=== PATIENT | female | born 2005 | race Caucasian/White ===

== ENCOUNTER → 2025-02-22 | Outpatient (CLI) | payer SELFPAY ==
--- OUTSIDE RECORDS SUMMARY | 2025-02-22 22:01 | XMS RPT_ITS | CCD ---
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 Fco Payan DO Primary Care Provider Dr. Fco Payan DO Referring Provider Mike [employer]ING [employer]ACHINE [employer] TENDER-[employer], Haseeb Attending Provider Medications Current Medications Medication Drug Class(es) Dates Sig (Normalized) Sig (Original) nitrofurantoin, macrocrystals 25 mg / nitrofurantoin, monohydrate 75 mg oral capsule (1 source) Nitrofuran Antibacterial Start: 02-22-2025 take 1 capsule by mouth every twelve hours at mealtime Nitrofurantoin Monohyd/M-Cryst (Macrobid) 100 mg capsule Active 100 mg PO Q12H 10 5 0 February 22, 2025 12:00am February 26, 2025 12:00am must administer with a meal/food Problems Problem Classification Problem Date Documented Da te Episodic/Chronic Unclassified (1 source) Patient condition finding 02-22-2025 Urinary tract infections (2 sources) Acute urinary tract infection; Translations: [Urinary tract infection, site not specified] 02-22-2025 Episodic Vital Signs Date Time Vital Sign Value Performing Clinician Faci lity 02-22-2025 10:00-0400 Body height 160.[address] Fco Payan DO Work Phone: [facility] 02-22-2025 10:00-0400 Body mass index (BMI) [Percentile] Per age and sex 47.5 % Dr. Fco Payan DO Work Phone: [facility] 02-22-2025 10:00-0400 Body mass index (BMI) [Ratio] 21.4 kg/m2 Dr. Fco Payan DO Work Phone: [facility] 02-22-2025 10:00-0400 Body temperature 98.1 [degF] Dr. Fco Payan DO Work Phone: [facility] 02-22-2025 10:00-0400 Body weight 54.[address] Fco Payan DO Work Phone: [facility] 02-22-2025 10:00-0400 Diastolic blood pressure 84 mm[Hg] Dr. Fco Payan DO Work Phone: [facility] 02-22-2025 10:00-0400 Heart rate 67 /min Dr. Fco Payan DO Work Phone: [facility] 02-22-2025 10:00-0400 Respiratory rate 14 /min Dr. Fco Payan DO Work Phone: [facility] 02-22-2025 10:00-0400 SaO2% (BldA) [Mass fraction] 99 % Dr. Fco Payan DO Work Phone: [facility] 02-22-2025 10:00-0400 Systolic blood pressure 120 mm[Hg] Dr. Fco Payan DO Work Phone: [facility] Encounters Encounter Date Encounter Type Care Provider Facility Start: 02-22-2025 End: 02-22-[address] Fco Payan DO Work Phone: [facility] Start: 02-22-2025 End: 02-22-2025 Patient encounter procedure Haseeb Mckeon [employer] Work Phone: Plan of Treatment Date Care Activity Detail Author [facility] Payers Date Payer Category Payer Policy ID Medicaid [id number] Unknown [id number] Social History Date Type Detail Facility Start: 02-22-2025 Tobacco smoking stat us DCIS Never smoked tobacco (finding) [facility] Start: 2005 Sex Assigned At Female [facility] Evaluation note Note Date & Type Note Facility Evaluation note Diagnosis Onset Date Resolution Acute UTI acute February 22, 2025 10:00am [facility] Work Phone: Reason for referral (narrative) Note Date & Type Note Facility Reason for referral (narrative) No reason for referral information available [facility] Work Phone: Chief Complaint and Reason for Visit Chief Complaint Admit Date CONCERN FOR UTI February 22, 2025 10:00am Reason for Visit Admit Date Acute UTI February 22, 2025 10:00am Additional Source Comments Care Teams (unrecognized sec tion and content) Team Status: Active Member Role/Relationship Status Dates Dr. Fco Payan DO Primary Care Provider Active Team Status: Inactive Member Role/Relationship Status Dates Dr. Fco Payan DO Primary Care Provider Active Start: February 22, 2025 End: February 22, 2025 Dr. Fco Payan DO Referring Provider Active S tart: February 22, 2025 End: February 22, 2025 TUNG Watson Attending Provider Active Star t: February 22, 2025 End: February 22, 2025 Goals (unrecognized section and content) Goals may be documented in a n alternate section FOR RECORDS PERTAINING TO PATIENTS WHO ARE OR HAVE BEEN ENROLLED IN A CHEMICAL DEPENDENCY/SUBSTANCEABUSE PROGRAM, SOME INFORMATION MAY BE OMITTED. This clinical summary was aggregated from multiple sources. Caution should be exercised in using it in the provision of clinical care. This summary normalizes information from multiple sources, and as a consequence, information in this document may materially change the coding, format and clinical context of patient data. In addition, data may be omitted in some cases. CLINICAL DECISIONS SHOULD BE BASED ON THE PRIMARY CLINICAL RECORDS. [facility]. provides no warranty or guarantee of the accuracy or completeness of information in this document.
== END | disposition home or self-care (01) ==
LOC: LABSPEC 11:18
PROVIDERS: PCP Pediatrics; Visit Provider Nurse Practitioner
DX: R82.90 Unspecified abnormal findings in urine (principal)
CPT/HCPCS: 87086; 87088

== ENCOUNTER 2025-02-23 22:53 | Emergency (ER) | payer SELFPAY ==
[2025-02-23 22:54] VITALS: BP 119/86; PULSE 66; RESP 18; TEMP 36.8; O2SAT 96; BMI 21.0
[2025-02-23 23:35] LABS: Mucous, Urine 0 SEEN /hpf (<or=2+); Red Blood Cells-Urine 0 SEEN /hpf (0-5)
[2025-02-23 23:42] LABS: Color, Urine Amber (Yellow); Glucose, Dipstick Normal (Normal); Ketone-Dipstick Negative (Negative); Leukocyte Esterase-Dipstick Negative /ul (Negative); Nitrite-Dipstick Positive (Negative); Occult Blood-Urine 50 /ul (Negative); Protein-Dipstick 30 mg/dl (Negative); Specific Gravity, Urine 1.015 (1.002-1.030)
[2025-02-23 23:44] LABS: Urine Bilirubin Dipstick 6 mg/dL (Negative)
--- NOTE | 2025-02-23 23:51 | EDS_ITS ---
HPI History of Present Illness Chief Complaint: Complaint Informant: patient Narrative Narrative: Patient is a 19-year-old female who is otherwise healthy with no reported significant past medical history. She states that she began with lower abdominal pain and urinary frequency urgency and dysuria on Thursday. She states that she went to the urgent care and was placed on Macrobid. She states she has been taking that for the past 2 days but her symptoms have been persistent. She states she is also had bouts of nausea and vomiting associated with this. She denies any fevers or chills. She states that there is no concern for . She reports there is no vaginal discharge or lesions or concern for STDs. However with persistent symptoms she comes in for evaluation [facility] Medical History (Updated 02/24/25 @ 01:[address] Mariusz Theodore DO) Acute UTI No active medical problems Home Medications ?Medication ?Instructions ?Recorded ?Last Taken ?Type nitrofurantoin 100 mg PO Q12H 5 days #10 ca ps 02/22/25 Unknown Rx monohydrate/macrocrystals 100 mg capsule (Macrobid) cephalexin 500 mg capsule 500 mg PO TID 5 days #15 cap s 02/24/25 Unknown Rx ondansetron 4 mg disintegrating 4 mg PO TID PRN nausea and 02/24/25 Unknown Rx tablet vomiting #21 tabs phenazopyridine 200 mg tablet 200 mg PO TID PRN pain 3 days #9 02/24/25 Unknown Rx (Pyridium) tabs Allergy/AdvReac Type Severity Reaction Status Date / Time No Known Allergies Allergy Verified 02/23/25 22:56 Surgical History No pertinent past surgical history Social History (Updated 02/22/25 @ 10:00 by Annamarie Kumar) Smoking Status: Never smoker alcohol intake: never substance use type: does not use ROS ROS ED Constitutional Constitutional ED: Denies chills or fever(s) ENT ENT ED: Denies sore throat Cardiovascular Cardiovascular: Denies chest pain Respiratory/Chest Respiratory/Chest: Denies cough or dyspnea Gastrointestinal Gastrointestinal: Reports abdominal pain, nausea and vomiting; Denies diarrhea Genitourinary Genitourinary ED: Reports dysuria, hematuria and urinary frequency Musculoskeletal Musculoskeletal: Reports back pain Integumentary Denies rash Neurologic Neurologic: Denies headache(s) Hematologic/Lymphatic Hematologic/Lymphatic: Denies easy bleeding or easy bruising EXAM Physical Exam Const Vital Signs: 02/23/25 22:54 02/23/25 23:56 02/24/25 00:59 Temperature 98.2 F 98.0 F 98.4 F Temperature Source Oral Oral Pulse Rate 66 56 L 68 Respiratory Rate 18 16 16 Blood Pressure 119/86 H 114/76 114/60 Blood Pressure Mean 97 88 78 Pulse Ox 96 96 99 Oxygen Delivery Method Room Air Room Air Positive well nourished and well developed General Appearance ED: well developed; Negative for pallor HEENT HEENT Narrative: Normocephalic atraumatic No tongue or lip swelling no oral lesions no airway edema or compromise; no secondary findings in the posterior pharynx Mucous membranes are slightly dry and tacky Eyes PERRL and EOMs intact bilaterally General Eye ED: Negative for scleral icterus Neck supple Resp normal respiratory effort and clear to auscultation bilaterally Cardio regular rate and regular rhythm GI non-distended and no masses GI Narrative: Abdomen is soft and nondistended with normal active bowel sounds. Patient has pain with palpation across the lower abdomen diffusely but greatest in the suprapubic region. No voluntary guarding or rigidity or pulsatile mass Auscultation: normoactive bowel sounds Palpation: soft Back/Spine no CVA tenderness Extremity normal to inspection Neuro oriented x3, CN's II-XII intact bilaterally and no sensory deficits noted Sensorium / Orientation: alert Motor Exam: strength 5/5 throughout Psych mental status grossly normal Skin no rashes or lesions noted and skin turgor normal General Skin Exam: Negative for jaundice or pallor MDM MDM MDM Narrative Medical decision making narrative: Patient arrived to the ER with stable vitals and a soft nonsurgical abdomen. She reported urinary frequency urgency and dysuria. Differential diagnosis is for UTI versus complication versus kidney stone versus pyelonephritis. As she reported being on Macrobid for 1 to 2 days already with persistent symptoms and having bouts of nausea and vomiting we did discuss basic laboratory studies to check for acute kidney injury electrolyte abnormality or signs of severe dehydration. Patient states that she does not want an IV or blood work done at this time. Therefore she was given oral Zofran and advised to hydrate orally. Patient's urine sample was nitrite positive with trace/rare bacteria. The culture from urgent care was reviewed and showed mixed gram-positive and gram-negative findings concerning for contamination. At this time the urine is weakly positive for UTI but based on her symptoms of urgency frequency and dysuria I do feel that the patient warrants further antibiotic treatment while the urine is sent for repeat culture. As she has been having potential side effects from the Macrobid such as nausea and vomiting this will be stopped and she will be changed to Keflex. However as her vitals are stable and there is no CVA pain and concern for pyelonephritis or systemic infection is low do not feel the need for further workup and she is otherwise safe for discharge. History & Record Review Discussion w/independent historian: Patient Lab Data Attestation: I reviewed the patient's lab results. Labs: Laboratory Results - last 24 hr 02/23/25 23:05 Urine Color Trisha Urine Clarity Clear Urine pH 6.0 Ur Specific [place] 1.015 Urine Protein 30 H Urine Glucose (UA) Normal Urine Ketones Negative Urine Occult Blood 50 H Urine Nitrite Positive H Urine Bilirubin 6 H Urine Urobilinogen 12 H Ur Leukocyte Esterase Negative Urine RBC 0 SEEN Urine WBC 0 SEEN Ur Squamous Epith Cells 0-5 SEEN Urine Bacteria RARE Urine Mucus 0 SEEN Urine Test Negative Discharge Plan Triage Chief Complaint: Complaint ED Provider: Mariusz Theodore Dx/Rx/DC Orders Clinical Impression: Acute UTI, Nausea and vomiting Instructions: ED UTIs Women Prescriptions: New ondansetron 4 mg tablet,disintegrating 4 mg PO TID PRN (Reason: nausea and vomiting) Qty: 21 0RF phenazopyridine [Pyridium] 200 mg tablet 200 mg PO TID PRN (Reason: pain) 3 Days Qty: 9 0RF cephalexin 500 mg capsule 500 mg PO TID 5 Days Qty: 15 0RF No Action nitrofurantoin monohyd/m-cryst [Macrobid] 100 mg capsule 100 mg PO Q12H 5 Days Qty: 10 0RF Rx Instructions: must administer with a meal/food Primary Care Provider: Care Physician,No Primary Referrals: Shemar Yeager MD [Med Staff - Active Staff] - NOT,DEFINED [Non-Staff] - Activity Restrictions/Additional Instructions: Please stop the nitrofurantoin/Macrobid as you are having persistent symptoms despite taking the antibiotic. Begin taking the cephalexin/Keflex as directed from the ER. Return for repeat evaluation if you have worsening of symptoms or any further concerns. Print Language: Romansh Disposition Disposition: Home, Self Care Discharge Date/Time: 02/24/25 00:59
[2025-02-23 23:53] LABS: Internal QC Validated? YES +Cl - CLEAR BKGD; Pregnancy, Urine Negative Negative; Record Kit Lot#,Urine Preg 0000947241; Squamous Epithelial Cells - UA 0-5 SEEN /hpf (5-10)
[2025-02-23 23:56] VITALS: BP 114/76; PULSE 56; RESP 16; TEMP 36.7; O2SAT 96
--- OUTSIDE RECORDS SUMMARY | 2025-02-24 00:46 | XMS RPT_ITS | CCD ---
Author Organization [facility] Care Team Providers Care Chemical Engraver Name Role Phone Dr. Fco Payan DO Primary Care Provider Dr. Fco Payan DO Referring Provider Mike OUTSOLE LEVELER-CHaseeb Attending Provider Haseeb Mckeon Attending Unavailable Fco Payan Referring Unavailable Fco Payan Primary Care Unavailable Haseeb Mckeon Attending Unavailable Fco Payan Primary Care Unavailable Provider, Ed Physician Attending Unavailab le NOT, DEFINED Primary Care Unavailable Medications Current Medications Medication Drug Class(es) Dates [...] Classification Problem Date Documented Da te Episodic/Chronic Genitourinary symptoms and ill-defined conditions (3 sources) Unspecified abnormal findings in urine; Translations: [Dysuria] Onset: 02-23-2025 Episodic Unclassified (1 source) Patient condition finding 02-22-2025 Urinary tract infections (3 sources) Acute urinary tract infection; Translations: [Urinary tract infection, site not specified] Onset: 02-23-2025 02-22-2025 Episodic Results Test Name Value Interpretation Reference Range Facil ity Urine Cultureon 02-23-2025 URC Mixed Gram Pos Gram Neg Org [place] Count <1000 MIXC Mixed contaminants. Submit a new specimen if indicated. Normal [facility] Comment on above: Performed By: #### M [id number] #### [facility] [address] [place], [address] Urgent Care Visit Reporton 0 02-22-2025 Urgent Care Visit Report [facility] [address], [address] [place] [address] OFFICE VISIT Date of Service: 02/22/25 MR#: [id number] Acct: [id number] Name: MONICA PONCE Rep #: [id number] : 2005 Provider: TUNG Mckeon Age/Sex: 19/F [place] [facility] [place] [place]: Signed Intake Vital Signs 02/22/25 10:00 Height 5 ft 3 in Weight: 121 lb 4 oz BMI 21.4 BP 120/84 H Blood Pressure Location Rt brachial Position Sitting Respiration 14 Pulse 67 Pulse Source NIBP Temp 98.1 F Temp Source Oral Pulse Oximetry (%) 99 Oxygen Delivery Method room air Intake Visit Reasons: CONCERN FOR UTI Chief Complaint: dysuria, blood, pubic pain Tax Representative Required: No Is patient in pain?: Yes Allergies No Known Allergies Allergy (Verified 02/22/25 10:18) Medications ???Medication ???Instructions ???Recorded ???Confirmed ???Type nitrofurantoin 100 mg PO Q12H 5 days #10 caps 09/1302/22/25 Rx monohydrate/macrocrys tals 100 mg capsule (Macrobid) Is last menstrual period known: No Post menopausal: No Patient : No Have you fallen in the past year?: No Nurse's Note: dysuria, blood, pubic pain x 2 days. denies back pain, unsure of fever. [facility] Medical History (Updated 02/22/25 @ 10:19 by TUNG Watson) Acute UTI No active medical problems Surgical History (Updated 02/22/25 @ 09:59 by Annamarie Kumar) No pertinent past surgical history Social History (Updated 02/22/25 @ 10:00 by Annamarie Kumar) Smoking Status: Never smoker alcohol intake: never substance use type: does not use HPI HPI Chief Complaint: dysuria, blood, pubic pain Details: MONICA PONCE, is a 19 F who presents to the office today for HPI: Patient presents today complaining about 1 day of urinary frequency and burning. She also notes lower abdominal and lower back pain. She notes nausea and vomiting but denies any fevers. Denies chance of . ROS: As noted in HPI Physical Exam: VITALS: Reviewed. GEN: Healthy appearing, well-developed, NAD. PSYCH: AOx3. Normal memory, mood, and affect. HEENT -Eyes: -No discharge or redness; -Ears: -Mouth and throat: Moist mucous membranes. NECK: CV: Regular rate and rhythm LUNGS: Normal respiratory effort. Lungs clear bilaterally. Abdomen: Soft nontender. No CVA tenderness. SKIN: Warm, well perfused. No skin rashes or abnormal lesions noted. MSK: Normal gait. NEURO: Ambulating with no limitations. Normal muscle strength and tone. No focal deficits. Results POC Urine Office , Urine Negative Last Edit by Ananmarie Kumar on 02/22/25 10:20 POC Urinalysis Dip (Clinic) Office Urine Color Trisha Last Edit by Annamarie Kumar on 02/22/25 10:21 Office Urine Clarity Turbid Last Edit by Annamarie Kumar on 02/22/25 10:21 Office Urine Glucose Negative Last Edit by Annamarie Kumar on 02/22/25 10:21 Office Urine Ketones Negative Last Edit by Annamarie Kumar on 02/22/25 10:21 Off Ur Spec [place] 1.025 Last Edit by Annamarie Kumar on 02/22/25 10:21 Office Urine pH 6.0 Last Edit by Annamarie Kumar on 02/22/25 10:21 Office Urine Bilirubin Negative Last Edit by Annamarie Kumar on 02/22/25 10:21 Office Urine Urobilinogen Negative Last Edit by Annamarie Kumar on 02/22/25 10:21 Office Urine Blood Negative Last Edit by Annamarie Kumar on 02/22/25 10:21 Office Urine Blood Hemolyzed Large Last Edit by Annamarie Kumar on 02/22/25 10:21 Office Urine Protein 2+ Last Edit by Annamarie Kumar on 02/22/25 10:21 Office Urine Nitrate Negative Last Edit by Annamarie Kumar on 02/22/25 10:21 Off Ur Leukocytes Positive Last Edit by Annamarie Kumar on 02/22/25 10:21 Coding Level of Care Code Off vis,new,level 3 Diagnoses Acute UTI N39.0 Assessment and Plan Assessment and Plan (1) Acute UTI: Status: Acute Plan: Urinalysis today was positive for leukocytes and blood. Negative test. Patient will be started on Macrobid and urine sent for culture. Orders: Orders POC Urinalysis Dip (Clinic) Today R30.0 - Dysuria POC Urine Today R30.0 - Dysuria Culture, Urine Today R82.90 - Unspecified abnormal findings in urine Medications: New nitrofurantoin monohyd/m-cryst 100 mg (Macrobid) must administer with a meal/food 100 mg PO Q12H 5 days 10 caps 0RF Clinical Quality Measures Falls Risk Screening/Assistive Devices Have you fallen in the past year?: No 02/22/25 1022 Date Haseeb Torresigner Signature: Date (if applicable) CC: Normal [facility] CNOVon 11-21-2020 CNOV Office Visit (PEDSWS ) MONICA PONCE ([id number]) 5 F Date Time Provider Department 11/21/20 3:30 PM LIVIA GUTIERREZ During your visit today, we recorded the following information about you: Temperature Pulse Respiration Blood pressure 97.4 degrees 68/minute 20/minute 94/64 Weight Height Last Period 52.2 kg 1.572 m 11/20/20 Livia Gutierrez MD 11/26/2020 10:00 AM Signed WELL VISIT PEDIATRIC FEMALE 14-17 YRS OLD SERVICE DATE: 11/21/2020 Monica is a 14 year old female who presents today for well exam accompanied by her father and sibling(s). HISTORY ACTIVE PROBLEM LIST Nocturnal Enuresis - 01/11/2014 PAST MEDICAL HISTORY Diagnosis Date - NEGATIVE MEDICAL HISTORY 12/10/2017 normal color vision - Nocturnal enuresis PAST SURGICAL HISTORY Procedure Laterality Date - NONE ALLERGIES No Known Allergies Medications: No prescriptions on file. FAMILY HISTORY Problem Relation Age of Onset - Cancer Paternal Grandmother lung Social History Social History Narrative Not on file SUBJECTIVE CONCERNS: school paperwork Smoking Exposure: Does your child spend a significant amount of time in the care of anyone who smokes? Yes -Who uses tobacco products? mom -Are you interesting in quitting? No -Do you have a smoke-free home rule in place? Yes -Do you have a smoke-free car rule in place? Yes School: Grade: 9th; grades A-B. Physical Activity: more than 1 hour of physical activity per day Screen Time totaling more than 2 hours of screen time per day. Safety: Reviewed seat belts and smoke detectors Diet: -Eats 3 meals per day and 1 snacks per day -Typical beverages include water and sugar containing beverages -Fruits and vegetables are eaten with nearly every meal -# of fast food meals/week: 1 -# of days/week that family has dinner together: 7 Elimination: no concerns, normal size and consistency Dental: dental care current Sleep: -no sleep concerns Gynecological history: LMP: 11/20/2020 Cycles are regular and last 3-4 days. Dysmenorrhea: mild Heavy periods: no Substance use: none High risk behaviors: none Sexual History: Attraction: male Sexually Active: No Body image: satisfactory Screening tools reviewed and discussed with patient/qvwyva-ONU-S score 0 (recommended cut off score is 11), Social Determinants of Health and TB. Please see questionnaires and review flowsheets. REVIEW OF SYSTEMS GENERAL: No fevers EYES: No vision concerns ENT: No hearing concerns RESPIRATORY: Negative for cough, wheezing or respiratory distress CARDIOVASCULAR: Negative for chest pain, syncope, lightheadness or heart racing SKIN: Negative for lesions, rash, and itching ENDOCRINE: No growth concerns OBJECTIVE Physical Exam: BP 94/64 Pulse 68 Temp 36.3 ?C (97.4 ?F) (Temporal Artery) Resp 20 Ht 157.2 cm (5' 1.89) Wt 52.2 kg (115 lb) LMP 11/20/2020 BMI 21.11 kg/m? Blood pressure percentiles are 9 % systolic and 48 % diastolic based on the 2017 AAP Clinical Practice Guideline. This reading is in the normal blood pressure range. 64 %ile (Z= 0.37) based on CDC (Girls, 2-20 Years) BMI-for-age based on BMI available as of 11/21/2020. Last BMI: Wt: 45.8 kg (101 lb) (46 %, Z= -0.10)* BMI: 19.32 kg/(m2) Last 4 Encounter Wt Readings: Date: Wt: 02/16/2019 45.8 kg (101 lb) (46 %, Z= -0.10)* 12/10/2017 44.9 kg (98 lb 14.4 oz) (63 %, Z= 0.33)* 06/29/2015 32.7 kg (72 lb) (59 %, Z= 0.22)* 01/11/2014 25.8 kg (56 lb 14.4 oz) (48 %, Z= -0.06)* Last 4 Encounter Ht Readings: Date: Ht: 02/16/2019 154 cm (5' 0.63) (27 %, Z= -0.61)* 12/10/2017 149.9 cm (4' 11) (41 %, Z= -0.23)* 01/11/2014 126.4 cm (4' 1.75) (37 %, Z= -0.34)* 01/03/2013 121.9 cm (4') (48 %, Z= -0.06)* General: Well developed, No acute distress Head: normocephalic Eyes: conjunctivae/corneas clear Ears: normal external ear and canal, tympanic membranes with normal landmarks Nose: no erythema or rhinorrhea Oropharynx: moist mucous membranes, no erythema or exudate Neck: Supple, no adenopathy Resp: lungs clear to auscultation Heart: RRR , Normal S1 and S2. , No murmurs Abdomen: Soft, nontender, nondistended, no palpable organomegaly or masses, normal bowel sounds Genitalia: deferred Extremities: No clubbing, cyanosis, or edema., No deformities or skin discoloration. Good capillary refill. Full range of motion. Neuro: No focal deficits or abnormal findings present Skin: no rashes, lesions or jaundice ASSESSMENT AND PLAN Encounter Diagnosis ICD-10-CM 1. Encounter for routine child health examination w/o abnormal findings Z00.129 64 %ile (Z= 0.37) based on CDC (Girls, 2-20 Years) BMI-for-age based on BMI available as of 11/21/2020. Monica is normal weight (BMI 5th% - 84th%): -To maintain a healthy weight, discussed limiting screen time to less than 2 hours per day, phy (more content not included)... Normal [facility] Vital Signs Date Time Vital Sign Value Performing Clinician Faci litdavid 02-22-2025 10:00-0400 Body height 160.[address] Fco Payan DO Work Phone: [facility] 02-22-2025 10:00-0400 Body mass index (BMI) [Percentile] Per age and sex 47.5 % Dr. Fco Payan DO Work Phone: [facility] 02-22-2025 10:00-0400 Body mass index (BMI) [Ratio] 21.4 kg/m2 Dr. Fco aPyan DO Work Phone: [facility] 02-22-2025 10:00-0400 Body temperature 98.1 [degF] Dr. Fco Payan DO Work Phone: [facility] 02-22-2025 10:00-0400 Body weight 54.[address] Fco Payan DO Work Phone: [facility] 02-22-2025 10:00-0400 Diastolic blood pressure 84 mm[Hg] Dr. Fco Payan DO Work Phone: [facility] 02-22-2025 10:00-0400 Heart rate 67 /min Dr. Fco Payan DO Work Phone: [facility] 02-22-2025 10:00-0400 Respiratory rate 14 /min Dr. Fco Payan DO Work Phone: [facility] 02-22-2025 10:00-0400 SaO2% (BldA) [Mass fraction] 99 % Dr. Fco Payan DO Work Phone: [facility] 02-22-2025 10:00-0400 Systolic blood pressure 120 mm[Hg] Dr. Fco Payan DO Work Phone: [facility] Encounters Encounter Date Encounter Type Care Provider Facility Start: 02-23-2025 ambulatory Ed Physician Provider F acility:[facility] Start: 02-22-2025 ambulatory Haseeb Mckeon Facility:[facility] Start: 02-22-2025 End: 02-22-2025 Patient encounter procedure Haseeb Mckeon [facility] Work Phone: Start: 02-22-2025 End: 02-22-[address] Fco Payan DO Work Phone: [facility] Plan of Treatment Date Care Activity Detail Author [facility] Payers Date Payer Category Payer Self-pay Medicaid [id number] Unknown [id number] Unknown [id number] Unknown [id number] Unknown [id number] Social History Date Type Detail Facility Start: 02-22-[facility] Start: 2005 Sex Assigned At Female [facility] Progress note 11-21-2020 Note Date & Type Note Facility 11-21-2020 Note HNO ID: [id number] Author: Livia Gutierrez MD Service: ? Author Type: Physician Type: Progress Notes Filed: 11/26/2020 10:00 AM Note Text: WELL VISIT PEDIATRIC FEMALE 14-17 YRS OLD SERVICE DATE: 11/21/2020 Monica is a 14 year old female who presents today for well exam accompanied by her father and sibling(s). HISTORY ACTIVE PROBLEM LIST Nocturnal Enuresis - 01/11/2014 PAST MEDICAL HISTORY Diagnosis Date - NEGATIVE MEDICAL HISTORY 12/10/2017 normal color vision - Nocturnal enuresis PAST SURGICAL HISTORY Procedure Laterality Date - NONE ALLERGIES No Known Allergies Medications: No prescriptions on file. FAMILY HISTORY Problem Relation Age of Onset - Cancer Paternal Grandmother lung Social History Social History Narrative Not on file SUBJECTIVE CONCERNS: school paperwork Smoking Exposure: Does your child spend a significant amount of time in the care of anyone who smokes? Yes -Who uses tobacco products? mom -Are you interesting in quitting? No -Do you have a smoke-free home rule in place? Yes -Do you have a smoke-free car rule in place? Yes School: Grade: 9th; grades A-B. Physical Activity: more than 1 hour of physical activity per day Screen Time totaling more than 2 hours of screen time per day. Safety: Reviewed seat belts and smoke detectors Diet: -Eats 3 meals per day and 1 snacks per day -Typical beverages include water and sugar containing beverages -Fruits and vegetables are eaten with nearly every meal -# of fast food meals/week: 1 -# of days/week that family has dinner together: 7 Elimination: no concerns, normal size and consistency Dental: dental care current Sleep: -no sleep concerns Gynecological history: LMP: 11/20/2020 Cycles are regular and last 3-4 days. Dysmenorrhea: mild Heavy periods: no Substance use: none High risk behaviors: none Sexual History: Attraction: male Sexually Active: No Body image: satisfactory Screening tools reviewed and discussed with patient/dwefvd-FKG-Q score 0 (recommended cut off score is 11), Social Determinants of Health and TB. Please see questionnaires and review flowsheets. REVIEW OF SYSTEMS GENERAL: No fevers EYES: No vision concerns ENT: No hearing concerns RESPIRATORY: Negative for cough, wheezing or respiratory distress CARDIOVASCULAR: Negative for chest pain, syncope, lightheadness or heart racing SKIN: Negative for lesions, rash, and itching ENDOCRINE: No growth concerns OBJECTIVE Physical Exam: BP 94/64 Pulse 68 Temp 36.3 ?C (97.4 ?F) (Temporal Artery) Resp 20 Ht 157.2 cm (5' 1.89) Wt 52.2 kg (115 lb) LMP 11/20/2020 BMI 21.11 kg/m? Blood pressure percentiles are 9 % systolic and 48 % diastolic based on the 2017 AAP Clinical Practice Guideline. This reading is in the normal blood pressure range. 64 %ile (Z= 0.37) based on CDC (Girls, 2-20 Years) BMI-for-age based on BMI available as of 11/21/2020. Last BMI: Wt: 45.8 kg (101 lb) (46 %, Z= -0.10)* BMI: 19.32 kg/(m2) Last 4 Encounter Wt Readings: Date: Wt: 02/16/2019 45.8 kg (101 lb) (46 %, Z= -0.10)* 12/10/2017 44.9 kg (98 lb 14.4 oz) (63 %, Z= 0.33)* 06/29/2015 32.7 kg (72 lb) (59 %, Z= 0.22)* 01/11/2014 25.8 kg (56 lb 14.4 oz) (48 %, Z= -0.06)* Last 4 Encounter Ht Readings: Date: Ht: 02/16/2019 154 cm (5' 0.63) (27 %, Z= -0.61)* 12/10/2017 149.9 cm (4' 11) (41 %, Z= -0.23)* 01/11/2014 126.4 cm (4' 1.75) (37 %, Z= -0.34)* 01/03/2013 121.9 cm (4') (48 %, Z= -0.06)* General: Well developed, No acute distress Head: normocephalic Eyes: conjunctivae/corneas clear Ears: normal external ear and canal, tympanic membranes with normal landmarks Nose: no erythema or rhinorrhea Oropharynx: moist mucous membranes, no erythema or exudate Neck: Supple, no adenopathy Resp: lungs clear to auscultation Heart: RRR , Normal S1 and S2. , No murmurs Abdomen: Soft, nontender, nondistended, no palpable organomegaly or masses, normal bowel sounds Genitalia: deferred Extremities: No clubbing, cyanosis, or edema., No deformities or skin discoloration. Good capillary refill. Full range of motion. Neuro: No focal deficits or abnormal findings present Skin: no rashes, lesions or jaundice ASSESSMENT AND PLAN Encounter Diagnosis ICD-10-CM 1. Encounter for routine child health examination w/o abnormal findings Z00.129 64 %ile (Z= 0.37) based on CDC (Girls, 2-20 Years) BMI-for-age based on BMI available as of 11/21/2020. Monica is normal weight (BMI 5th% - 84th%): -To maintain a healthy weight, discussed limiting screen time to less than 2 hours per day, physical activity for at least one hour per day, 5 servings of fruits and vegetables per day, 3 meals per day, family meals ar home and no sugar containing beverages Based on PHQ-A score and interview, presentation is not consistent with depression - Adolescent anticipatory guidance discussed. - Discussed diet and sa (more content not included)... [facility] Evaluation note Note Date & Type Note Facility Evaluation note Diagnosis Onset Date Resolution Acute UTI acute February 22, 2025 10:00am [facility] Work Phone: Reason for referral (narrative) Note Date & Type Note Facility Reason for referral (narrative) No reason for referral information available [facility] Work Phone: Summary Purpose Family History No Family History Records FoundNo Family History Records Found Advance Directives No Advanced Directives Records FoundNo Advanced Directives Records Found Chief Complaint and Reason for Visit Chief Complaint Admit Date CONCERN FOR UTI February 22, 2025 10:00am Reason for Visit Admit Date Acute UTI February 22, 2025 10:00am Additional Source Comments INFORMATION SOURCE (unrecogn ized section and content) DATE CREATED AUTHOR 07/15/2021 [facility] DATE CREATED AUTHOR AUTHOR'S ORGANIZ ATION 02/23/2025 [facility] Care Teams (unrecognized sec tion and content) [...] BE BASED ON THE PRIMARY CLINICAL RECORDS. [facility] [employer] [facility]. provides no warranty or guarantee of the accuracy or completeness of information in this document.
[2025-02-24 00:59] VITALS: BP 114/60; PULSE 68; RESP 16; TEMP 36.9; O2SAT 99
== END 2025-02-24 00:59 | disposition home or self-care (01) ==
PROVIDERS: Emergency Provider Emergency Medicine; Visit Provider Emergency Medicine
DX: N39.0 Urinary tract infection, site not specified (principal); R11.2 Nausea with vomiting, unspecified; R10.9 Unspecified abdominal pain
CPT/HCPCS: 81001; 81025; 87077; 87086; 87088; 99283

== ENCOUNTER 2025-03-09 18:22 | Emergency (ER) | payer SELFPAY ==
[2025-03-09 18:23] VITALS: BP 121/73; PULSE 69; RESP 14; TEMP 36.6; O2SAT 99; BMI 21.3
--- OUTSIDE RECORDS SUMMARY | 2025-03-09 19:19 | XMS RPT_ITS | CCD ---
Author Organization [facility] Care Team Providers Care Raw Hide Trimmer Name Role Phone Dr. Fco Payan DO Primary Care Provider Dr. Fco Payan DO Referring Provider [phone] Mike FLORES-CHaseeb Attending Provider Dr. Mariusz Theodore DO Emergency Provider [phone] Care Physician, No Primary Primary Care Provider Unavailable Dr. Mariusz Theodore DO Attending Provider Fco Payan Referring Unavailable Fco Payan Primary Care Unavailable Haseeb Mckeon Attending Unavailable Fco Payan Primary Care Unavailable Haseeb Mckeon Attending Unavailable Mariusz Theodore Attending Unavailable Care Physician, No Primary Primary Care Unava ilable Medications Current Medications Medication Drug Class(es) Dates Sig (Normalized) Sig (Original) cephalexin 500 mg oral capsule (2 sources) Cephalosporin Antibacterial Start: 02-24-2025 take 1 capsule by mouth three times daily Cephalexin 500 mg capsule Active 500 mg PO THREE TIMES A DAY 15 5 0 February 24, 2025 12:00am ondansetron 4 mg disintegrating oral tablet (2 sources) Serotonin-3 Receptor Antagonist Start: 02-24-2025 take 1 tablet by mouth three times daily as needed for nausea and vomiting Ondansetron 4 mg tablet,disintegratin g Active 4 mg PO THREE TIMES A DAY as needed for nausea and vomiting 21 0 February 24, 2025 12:50am phenazopyridine hydrochloride 200 mg oral tablet (2 sources) Start: 02-24-2025 take 1 tablet by mouth three times daily as needed for pain Phenazopyridine (Pyridium) 200 mg tablet Active 200 mg PO THREE TIMES A DAY as needed for pain 9 3 0 February 24, 2025 12:00am Completed/Discontinued Medications Medication Drug Class(es) Dates Sig (Normalized) Sig (Original) nitrofurantoin, macrocrystals 25 mg / nitrofurantoin, monohydrate 75 mg oral capsule (3 sources) Nitrofuran Antibacterial Start: 02-22-2025 End: 02-27-2025 take 1 capsule by mouth every twelve hours at mealtime Nitrofurantoin Monohyd/M-Cryst (Macrobid) 100 mg capsule Discontinued 100 mg PO Q12H 10 5 0 February 22, 2025 12:00am February 26, 2025 12:00am February 27, 2025 12:07am must administer with a meal/food Problems Problem Classification Problem Date Documented Date Episodic/Chronic Genitourinary symptoms and ill-defined conditions (3 sources) Unspecified symptoms and signs involving the genitourinary system; Translations: [Unspecified abnormal findings in urine] Onset: 02-23-2025 Episodic Nausea and vomiting (1 source) Nausea and vomiting; Translations: [Nausea with vomiting, unspecified] 02-24-2025 Episodic Unclassified (3 sources) Patient condition finding 02-22-2025 Urinary tract infections (7 sources) Acute urinary tract infection; Translations: [Urinary tract infection, site not specified] Onset: 02-23-2025 02-22-2025 Episodic Results Test Name Value Interpretation Reference Range Facility Urine Cultureon 02-27-2025 [facility] Organism is too fastidious for routine susceptibility studies. Lactococcus garvieae Simpson Count 11,000-25,000 Normal [facility] Comment on above: Performed By: #### M 100.2200 #### [facility] [address] [place], [place], [id number] Urine Cultureon 02-24-2025 [facility] Below infection level. Mixed Gram Pos Gram Neg Org Simpson Count 1000-10,000 MIXC Mixed contaminants. Submit a new specimen if indicated. Normal [facility] Comment on above: Performed By: #### M 100.2200 #### [facility] [address] [place], [place], [id number] Bilirubin Test strip Ql (U)O rdered By: Mariusz Theodore on 02-23-2025 Bilirubin Ql (U) 6 mg/dL High Negative [facility] Comment on above: COLOR OF URINE MAY A FFECT DIPSTICK RESULTS. Emergency Department Summary on 02-23-2025 Emergency Department Summary [facility] Medical Records Department [address] [place] [address] Emergency Department Summary 02/23/25 MR#: [id number] Acct: [id number] Name: MONICA PONCE Rep #: [id number] : 2005 19 From: Mariusz Theodore DO PCP: Care Physician,No Primary Status:DEP ER Location: ED HPI History of Present Illness Chief Complaint: Complaint Informant: patient Narrative Narrative: Patient is a 19-year-old female who is otherwise healthy with no reported significant past medical history. She states that she began with lower abdominal pain and urinary frequency urgency and dysuria on Thursday. She states that she went to the urgent care and was placed on Macrobid. She states she has been taking that for the past 2 days but her symptoms have been persistent. She states she is also had bouts of nausea and vomiting associated with this. She denies any fevers or chills. She states that there is no concern for . She reports there is no vaginal discharge or lesions or concern for STDs. However with persistent symptoms she comes in for evaluation [facility] Medical History (Updated 02/24/25 @ 01:[address] Mariusz Theodore DO) Acute UTI No active medical problems Home Medications ???Medication ???Instructions ???Recorded ???Last Taken ???Type nitrofurantoin 100 mg PO Q12H 5 days #10 caps 09/13 Unknown Rx monohydrate/macrocr ystals 100 mg capsule (Macrobid) cephalexin 500 mg capsule 500 mg PO TID 5 days #15 caps 11/13 Unknown Rx ondansetron 4 mg disintegrating 4 mg PO TID PRN nausea and 5 Unknown Rx tablet vomiting #21 tabs phenazopyridine 200 mg tablet 200 mg PO TID PRN pain 3 days #9 0 02/24/25 Unknown Rx (Pyridium) tabs Allergy/AdvReac Type Severity Reaction Status Date / Time No Known Allergies Allergy Verified 02/23/25 22:56 Surgical History No pertinent past surgical history Social History (Updated 02/22/25 @ 10:00 by Annamarie Kumar) Smoking Status: Never smoker alcohol intake: never substance use type: does not use ROS ROS ED Constitutional Constitutional ED: Denies chills or fever(s) ENT ENT ED: Denies sore throat Cardiovascular Cardiovascular: Denies chest pain Respiratory/Chest Respiratory/Chest: Denies cough or dyspnea Gastrointestinal Gastrointestinal: Reports abdominal pain, nausea and vomiting; Denies diarrhea Genitourinary Genitourinary ED: Reports dysuria, hematuria and urinary frequency Musculoskeletal Musculoskeletal: Reports back pain Integumentary Denies rash Neurologic Neurologic: Denies headache(s) Hematologic/Lymphat ic Hematologic/Lymphat ic: Denies easy bleeding or easy bruising EXAM Physical Exam Const Vital Signs: 02/23/25 22:54 02/23/25 23:56 02/24/25 00:59 Temperature 98.2 F 98.0 F 98.4 F Temperature Source Oral Oral Pulse Rate 66 56 L 68 Respiratory Rate 18 16 16 Blood Pressure 119/86 H 114/76 114/60 Blood Pressure Mean 97 88 78 Pulse Ox 96 96 99 Oxygen Delivery Method Room Air Room Air Positive well nourished and well developed General Appearance ED: well developed; Negative for pallor HEENT HEENT Narrative: Normocephalic atraumatic No tongue or lip swelling no oral lesions no airway edema or compromise; no secondary findings in the posterior pharynx Mucous membranes are slightly dry and tacky Eyes PERRL and EOMs intact bilaterally General Eye ED: Negative for scleral icterus Neck supple Resp normal respiratory effort and clear to auscultation bilaterally Cardio regular rate and regular rhythm GI non-distended and no masses GI Narrative: Abdomen is soft and nondistended with normal active bowel sounds. Patient has pain with palpation across the lower abdomen diffusely but greatest in the suprapubic region. No voluntary guarding or rigidity or pulsatile mass Auscultation: normoactive bowel sounds Palpation: soft Back/Spine no CVA tenderness Extremity normal to inspection Neuro oriented x3, CN's II-XII intact bilaterally and no sensory deficits noted Sensorium / Orientation: alert Motor Exam: strength 5/5 throughout Psych mental status grossly normal Skin no rashes or lesions noted and skin turgor normal General Skin Exam: Negative for jaundice or pallor MDM MDM MDM Narrative Medical decision making narrative: Patient arrived to the ER with stable vitals and a soft nonsurgical abdomen. She reported urinary frequency urgency and dysuria. Differential diagnosis is for UTI versus complication versus kidney stone versus pyelonephritis. As she reported being on Macrobid for 1 to 2 days already with persistent symptoms and having bouts of nausea and vomiting we did discuss basic laboratory studies to check for (more content not included)... Normal [facility] Ketones Test strip Ql (U)Ord ered By: Mariusz Theodore on 02-23-2025 Ketones Ql (U) Negative Negative [facility] Microscopic analysis of urin e for red blood cells (RBC)Ordered By: Mariusz Theodore on 02-23-2025 Microscopic analysis of urine for red blood cells (RBC) 0 SEEN /hpf 0-5 [facility] Mucus LM Ql (Urine sed)Order ed By: Mariusz Theodore on 02-23-2025 Mucus Ql (Urine sed) 0 SEEN /hpf [facility] Nitrite Test strip Ql (U)Ord ered By: Mariusz Theodore on 02-23-2025 Nitrite Ql (U) Positive High Negative [facility] ,Urineon 02-23-2025 Beta HCG ( test) Ql (U) Negative Normal [facility] Comment on above: Order Comment: COLOR OF URINE MAY AFFECT DIPSTICK RESULTS. Result Comment: Very dilute urine specimens, as indicated by a low specific gravity, may not contain pharmaceutical specialty representative levels of hCG. If is still suspected, a first morning urine specimen should be collected 48 hours later and tested. Performed By: #### L 400.7600, L400.0001 #### [facility] [address] [place], [place], [id number] Protein Test strip Ql (U)Ord ered By: Mariusz Theodore on 02-23-2025 Protein Ql (U) 30 mg/dl High Negative [facility] Squamous epithelial cells de tection in urine sediment by light microscopyOrdered By: Mariusz Theodore on 02-23-2025 Epithelial cells.squamous LM Ql (Urine sed) 0-5 SEEN /hpf 5-10 [facility] Urinalysis, Completeon 02-23 BACTERIA RARE Normal None Seen [facility] Comment on above: Order Comment: COLOR OF URINE MAY AFFECT DIPSTICK RESULTS. CLEAN CATCH Performed By: #### L 400.7600, L400.0001 #### [facility] [address] [place], [address] EPI,SQUAMOUS 0-5 SEEN Normal 5-10 [facility] Comment on above: Order Comment: COLOR OF URINE MAY AFFECT DIPSTICK RESULTS. CLEAN CATCH Performed By: #### L 400.7600, L400.0001 #### [facility] [address] [place], [address] WBC 0 SEEN Normal 0-5 [facility] Comment on above: Order Comment: COLOR OF URINE MAY AFFECT DIPSTICK RESULTS. CLEAN CATCH Performed By: #### L 400.7600, L400.0001 #### [facility] [address] [place], [address] Mucus Ql (Urine sed) 0 SEEN Normal [facility] Comment on above: Order Comment: COLOR OF URINE MAY AFFECT DIPSTICK RESULTS. CLEAN CATCH Performed By: #### L 400.7600, L400.0001 #### [facility] [address] [place], [address] RBC 0 SEEN Normal 0-5 [facility] Comment on above: Order Comment: COLOR OF URINE MAY AFFECT DIPSTICK RESULTS. CLEAN CATCH Performed By: #### L 400.7600, L400.0001 #### [facility] [address] [place], [address] Urine clarityOrdered By: Kenrick Theodore on 02-23-2025 Clarity (U) Clear Clear [facility] Urine color determinationOrd ered By: Mariusz Theodore on 02-23-2025 Color (U) Trisha Yellow [facility] Urine cultureOrdered By: Kenrick Theodore on 02-23-2025 Bacteria identified Cx Nom (U) Lactococcus garvieae Abnormal [facility] Urine glucose detectionOrder ed By: Mariusz Theodore on 02-23-2025 Glucose Ql (U) Normal mg/dl Normal [facility] Urine leukocyte esterase det ection by dipstickOrdered By: Mariusz Theodore on 02-23-2025 Leukocyte esterase Test strip Ql (U) Negative Negative [facility] Urine pHOrdered By: Mariusz meza on 02-23-2025 pH (U) 6.0 [pH] 5.0 - 8.0 [facility] Urine testOrdered By: Mariusz Theodore on 02-23-2025 HCG ( test) Ql (U) Negative [facility] Comment on above: Very dilute urine sp ecimens, as indicated by a low specificgravity, may not contain pharmaceutical specialty representative levels of hCG. If is still suspected, a first morning urinespecimen should be collected 48 hours later and tested. Urine sediment bacteria coun t by microscopy (number/high power field)Ordered By: Mariusz Theodore on 02-23-2025 Bacteria LM.HPF (Urine sed) [#/Area] RARE /hpf None Seen [facility] Urine specific gravity measu rementOrdered By: Mariusz Theodore on 02-23-2025 Specific gravity (U) [Rel density] 1.015 1.002-1.030 [facility] Urine urobilinogen measureme ntOrdered By: Mariusz Theodore on 02-23-2025 Urobilinogen Ql (U) 12 mg/dl High Normal [facility] White blood cell countOrdere d By: Mariusz Theodore on 02-23-2025 White blood cell count 0 SEEN /hpf 0-5 [facility] - Chemistry and C hemistry - challengeOrdered By: Haseeb Mckeon on 02-22-2025 HCG ( test) Ql (U) Negative [facility] Bilirubin Ql (U) Negative [facility] Glucose Ql (U) Negative [facility] Ketones Ql (U) Negative [facility] pH (U) 6.0 [pH] [facility] Specific gravity (U) [Rel density] 1.025 [facility] Urobilinogen (U) [Mass/Vol] Negative [facility] Laboratory - Hematology and Cell countsOrdered By: Haseeb Mckeon on 02-22-2025 Hemoglobin Ql (U) Negative [facility] Laboratory - Specimen inform ationOrdered By: Haseeb Mckeon on 02-22-2025 Clarity (U) Turbid [facility] Color (U) Trisha [facility] Laboratory - UrinalysisOrder ed By: Haseeb Mckeon on 02-22-2025 Nitrite Ql (U) Negative [facility] Protein Ql (U) 2+ [facility] No Panel InformationOrdered By: Haseeb Mckeon on 02-22-2025 Urine Leukocytes Positive [facility] Urine Non-Hemolyzed Blood Large [facility] Urgent Care Visit Reporton 0 02-22-2025 Urgent Care Visit Report [facility] [address], [address] [place] [address] OFFICE VISIT Date of Service: 02/22/25 MR#: [id number] Acct: [id number] Name: MONICA PONCE Rep #: [id number] : 2005 Provider: TUNG Mckeon Age/Sex: 19/F Location: [facility] Status: Signed Intake Vital Signs 02/22/25 10:00 Height 5 ft 3 in Weight: 121 lb 4 oz BMI 21.4 BP 120/84 H Blood Pressure Location Rt brachial Position Sitting Respiration 14 Pulse 67 Pulse Source NIBP Temp 98.1 F Temp Source Oral Pulse Oximetry (%) 99 Oxygen Delivery Method room air Intake Visit Reasons: CONCERN FOR UTI Chief Complaint: dysuria, blood, pubic pain [employer]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 denies back pain, unsure of fever. PFSH Medical History (Updated 02/22/25 @ 10:19 by TUNG Watson) Acute UTI No active medical problems Surgical History (Updated 02/22/25 @ 09:59 by Annamarie Kumar) No pertinent past surgical history Social History (Updated 02/22/25 @ 10:00 by Annamarie Kumar) Smoking Status: Never smoker alcohol intake: never substance use type: does not use HPI HPI Chief Complaint: dysuria, blood, pubic pain Details: MONICA PONCE is a 19 F who presents to [...] Office , Urine Negative Last Edit by Annamarie Kumar on 02/22/25 10:20 POC Urinalysis Dip (Clinic) Office Urine Color Trisha Last Edit by Annamarie Kumar on 02/22/25 10:21 Office Urine Clarity Turbid Last Edit by Annamarie Kumar on 02/22/25 10:21 Office Urine Glucose Negative Last Edit by Annamarie Kumar on 02/22/25 10:21 Office Urine Ketones Negative Last Edit by Annamarie Kumar on 02/22/25 10:21 Off Ur Spec [place] 1.025 Last Edit by Annamarie Kumar on [...] past year?: No 02/22/25 1022 Date Haseeb Mckeon [employer] Cosigner Signature: Date (if applicable) CC: Normal [facility] Urine cultureOrdered By: Haseeb Mckeon on 02-22-2025 Bacteria identified Cx Nom (U) Mixed Gram Pos & Gram Neg Org Abnormal [facility] CNOVon 11-21-2020 CNOV Office Visit (PEDSWS) ---- MONICA PONCE ([id number]) 5 F Date Time Provider Department 11/21/20 [...] satisfactory Screening tools reviewed and discussed with patient/family-PHQ- A score 0 (recommended cut off score is [...] developed, No acute distress Head: normocephalic Eyes: conjunctivae/cornea s clear Ears: normal external ear and canal, [...] day, phy (more content not included)... Normal [facility] Vital Signs Date Time Vital Sign Value Performing Clinician Bessy pereyra 02-24-2025 00:59-0400 Body temperature 98.4 [degF] Dr. Fco Payan DO Work Phone: [facility] 02-24-2025 00:59-0400 Diastolic blood pressure 60 mm[Hg] Dr. Fco Payan DO Work Phone: [facility] 02-24-2025 00:59-0400 Heart rate 68 /min Dr. Fco Payan DO Work Phone: [facility] 02-24-2025 00:59-0400 Respiratory rate 16 /min Dr. Fco Payan DO Work Phone: [facility] 02-24-2025 00:59-0400 SaO2% (BldA) [Mass fraction] 99 % Dr. Fco Payan DO Work Phone: [facility] 02-24-2025 00:59-0400 Systolic blood pressure 114 mm[Hg] Dr. Fco Payan DO Work Phone: [facility] 02-23-2025 22:54-0400 Body height 160.[address] Fco Payan DO Work Phone: [facility] 02-23-2025 22:54-0400 Body mass index (BMI) [Percentile] Per age and sex 42.3 % Dr. Fco Payan DO Work Phone: [facility] 02-23-2025 22:54-0400 Body mass index (BMI) [Ratio] 21 kg/m2 Dr. Fco Payan DO Work Phone: [facility] 02-23-2025 22:54-0400 Body weight 53.[address] Fco Payan DO Work Phone: [facility] 02-22-2025 10:00-0400 Body height 160.[address] Fco Payan DO Work Phone: [facility] 02-22-2025 10:00-0400 Body mass index (BMI) [Percentile] Per age and sex 47.5 % Dr. Fco Payan DO Work Phone: [facility] 02-22-2025 10:00-0400 Body mass index (BMI) [Ratio] 21.4 kg/m2 Dr. Fco Payan DO Work Phone: [facility] 02-22-2025 10:00-0400 Body temperature 98.1 [degF] Dr. Fco Payan DO Work Phone: [facility] 02-22-2025 10:00-0400 Body weight 54.[address] Fco Payan DO Work Phone: [facility] 02-22-2025 10:00-0400 Diastolic blood pressure 84 mm[Hg] Dr. Fco Payan DO Work Phone: [facility] 02-22-2025 10:00-0400 Heart rate 67 /min Dr. Fco Payan DO Work Phone: [facility] 02-22-2025 10:00-0400 Respiratory rate 14 /min Dr. Fco Payan DO Work Phone: [facility] 02-22-2025 10:00-0400 SaO2% (BldA) [Mass fraction] 99 % Dr. Fco Payan DO Work Phone: [facility] 02-22-2025 10:00-0400 Systolic blood pressure 120 mm[Hg] Dr. Fco Payan DO Work Phone: [facility] Encounters Encounter Date Encounter Type Care Provider Facility Start: 02-23-2025 End: 02-24-2025 Emergency department patient visit Dr. Fco Payan DO Work Phone: -Emergency Department Work Phone: Start: 02-22-2025 End: 02-22-[address] Fco Payan DO Work Phone: -Laboratory Specimen Start: 02-22-2025 End: 02-22-2025 Patient encounter procedure Haseeb Mckeon [employer] -Laboratory Specimen Work Phone: Start: 02-22-2025 End: 02-22-2025 Patient encounter procedure Haseeb Mckeon [employer] [facility] Work Phone: Start: 02-22-2025 End: 02-22-[address] Fco Payan DO Work Phone: [facility] Start: 02-22-2025 End: 02-22-2025 ambulatory Fco Payan Facility:[facility] Procedures Date Procedure Procedure Detail Performing Clinician Start: 02-23-2025 Urnls dip stick/tabl et reagent auto microscopy Dr. Fco Payan DO Work Phone: Start: 02-23-[address] Fco Payan DO Work Phone: Start: 02-22-[address] Fco Payan DO Work Phone: Plan of Treatment Date Care Activity Detail Author Start: 02-24-2025 End: 02-24-2025 [facility] Start: 02-22-2025 Urine culture Urine Culture [facility] Start: 02-22-2025 [facility] Patient Education ED [facility] Work Phone: Urine culture [facility] Payers Date Payer Category Payer Self-pay Medicaid [id number] Unknown [id number] Unknown [id number] Unknown [id number] Unknown [id number] Social History Date Type Detail Facility Start: 02-22-2025 End: 02-23-2025 Tobacco smoking status NHIS Never smoked tobacco (finding) [facility] Start: 2005 Sex Assigned At Female [facility] Evaluation note 02-22-2025 Note Date & Type Note Facility 02-22-2025 Evaluation note Diagnosis Onset Date Resolution Acute UTI acute February 22, 2025 10:00am [facility] Work Phone: Progress note 11-21-2020 Note Date & Type Note Facility 11-21-2020 Note HNO ID: [id number] Author: Livia Gutierrez MD Service: ? Author [...] satisfactory Screening tools reviewed and discussed with patient/zyxncr-TMB-A score 0 (recommended cut off score is [...] diet and sa (more content not included)... [facility] Evaluation note Note Date & Type Note Facility Evaluation note Diagnosis Onset Date Resolution Acute UTI acute February 22, 2025 10:00am [facility] Work Phone: Hospital Discharge instructions Note Date & Type Note Facility Hospital Discharge instructions Additional Instructions Please stop the nitrofurantoin/Macrobid as you are having persistent symptoms despite taking the antibiotic. Begin taking the cephalexin/Keflex as directed from the ER. Return for repeat evaluation if you have worsening of symptoms or any further concerns. [facility] Work Phone: Reason for referral (narrative) Note Date & Type Note Facility Reason for referral (narrative) No reason for referral information available [facility] Work Phone: Summary Purpose Family History No Family History Records FoundNo Family History Records Found Advance Directives No Advanced Directives Records Found Advance Directive Response Recorded Date/ Time Do you have a Healthcare Power of Public Opinion Survey Taker? No February 23, 2025 10:59pm Chief Complaint and Reason for Visit Chief Complaint Admit Date CONCERN FOR UTI February 22, 2025 10:00am Complaint February 23, 2025 10:53pm Reason for Visit Admit Date Acute UTI February 22, 2025 10:00am Chief Complaint Admit Date CONCERN FOR UTI February 22, 2025 10:00am Additional Source Comments INFORMATION SOURCE (unrecogn ized section and content) DATE CREATED AUTHOR 07/15/2021 [facility] DATE CREATED AUTHOR AUTHOR'S ORGANIZ ATION 03/05/2025 [facility] Care Teams (unrecognized sec tion and [...] February 22, 2025 End: February 22, 2025 Team Status: Active Member Role/Relationship Status Dates No Primary Care Physician Primary Care Provider Active Team Status: Active Member Role/Relationship Status Dates Dr. Fco Payan DO Primary Care Provider Active Start: February 22, 2025 TUNG Watson Attending Provider Active Star t: February 22, 2025 Team Status: Inactive Member Role/Relationship Status Dates Dr. Mariusz Theodore DO Emergency Provider Active Start: February 23, 2025 End: February 24, 2025 No Primary Care Physician Primary Care Provider Active Start: February 23, 2025 End: February 24, 2025 Team Status: Inactive Member Role/Relationship Status Dates Dr. Fco Payan DO Primary Care Provider Active Start: February 22, 2025 End: February 22, 2025 Haseeb Mckeon NP-C Attending Provider Active Star t: February 22, 2025 End: February 22, 2025 Team Status: Inactive Member Role/Relationship Status Dates Dr. Mariusz Theodoer DO Attending Provider Active Start: February 23, 2025 End: February 24, 2025 Dr. Mariusz Theodore DO Emergency Provider Active Start: February 23, 2025 End: February 24, 2025 No Primary Care Physician Primary Care Provider Active Start: February 23, 2025 End: February 24, 2025 Goals (unrecognized section and content) Goals may be documented in a n alternate sectionGoals may be documented in an alternate sectionGoals may be documented in an alternate section FOR RECORDS PERTAINING TO PATIENTS [...] BE BASED ON THE PRIMARY CLINICAL RECORDS. [employer] [facility]. provides no warranty or guarantee of the accuracy or completeness of information in this document.
== END 2025-03-09 19:15 | disposition left against medical advice (07) ==
LOC: ED 19:17
DX: Z53.21 Procedure and treatment not carried out due to patient leaving prior to being seen by health care provider (principal)

== ENCOUNTER 2025-03-10 11:59 | Emergency (ER) | payer OTHER, SELFPAY ==
[2025-03-10 12:01] VITALS: BP 116/64; PULSE 103; RESP 16; TEMP 36.4; O2SAT 96; BMI 21.1
[2025-03-10 12:27] VITALS: BP 109/91; PULSE 93; RESP 16; TEMP 36.7; O2SAT 95
--- NOTE | 2025-03-10 12:30 | ED.RN ---
states after three doses of Bactrim for current UTI multiple people told her she had bluish lips. states she also had increased fatigue yesterday, stopped taking Bactrim.
[2025-03-10 12:51] VITALS: BP 109/91; PULSE 93; RESP 16; TEMP 36.7; O2SAT 95
--- NOTE | 2025-03-10 12:52 | EDS_ITS ---
HPI History of Present Illness Chief Complaint: Complaint Narrative Narrative: 19-year-old female brought in by her stepmom because of reported blue lips yesterday after taking Bactrim. Her stepmother relates history that she was seen in the emergency department approximately a week ago, and placed on an antibiotic. She finished those and a day later, started having symptoms of a UTI again. She reports that they went to urgent care and was placed on Bactrim. She had never taken that previously. Yesterday, her father noticed that her lips were turning blue and thought she was wearing blue-colored lip gloss. She denies any difficulty swallowing or breathing, no shortness of breath, no noted rash. While her symptoms may have resolved, they tried to see their primary care provider today and were told by the nurse practitioner that she may be having a serious reaction to Bactrim. She was told to come to the emergency department. She has not taken Bactrim recently and only had a day's worth. [facility] Medical History Acute UTI No active medical problems Home Medications ?Medication ?Instructions ?Recorded ?Last Taken ?Type cephalexin 500 mg capsule 500 mg PO TID 5 days #15 cap s 02/24/25 Unknown Rx ondansetron 4 mg disintegrating 4 mg PO TID PRN nausea and 02/24/25 Unknown Rx tablet vomiting #21 tabs phenazopyridine 200 mg tablet 200 mg PO TID PRN pain 3 days #9 02/24/25 Unknown Rx (Pyridium) tabs Allergy/AdvReac Type Severity Reaction Status Date / Time No Known Allergies Allergy Verified 03/10/25 12:03 Surgical History No pertinent past surgical history Social History Smoking Status: Never smoker alcohol intake: never substance use type: does not use ROS ROS ED ROS Narrative Review of systems positive for reported change in color of lips. No difficulty swallowing or breathing. No rash. No recent fevers or chills, no nausea or vomiting. UTI symptoms have resolved. No back pain. EXAM Physical Exam Narrative Exam Narrative: Afebrile. Vital signs noted. Nontoxic-appearing. Cardiovascular examination feels regular rate and rhythm. Lungs are clear to auscultation bilaterally, no wheezing or stridor. Abdomen is soft and nontender with normoactive bowel sounds. Neuro logical examination is nonfocal, nonlateralizing. No noted skin rash. HEENT examination shows airway to be patent without drooling or trismus. No meningismus. No mucosal lesions. Const Vital Signs: 03/10/25 12:01 03/10/25 12:27 Temperature 97.6 F L 98.1 F Temperature Source Temporal Oral Pulse Rate 103 H 93 Respiratory Rate 16 16 Blood Pressure 116/64 109/91 H Blood Pressure Mean 81 97 Pulse Ox 96 95 Oxygen Delivery Method Room Air Room Air MDM MDM MDM Narrative Medical decision making narrative: The differential diagnosis includes but not limited to drug reaction versus Loving-Jas syndrome versus anaphylaxis. History and physical does not support the latter 2 diagnoses. Her symptoms of the drug reaction with her reported blue lips has resolved and her lips are normal in color without any central cyanosis. Pulse ox is 95 to 96% on room air. In discussion with the patient and her stepmother, I do not feel that she needs any imaging nor do I feel that she needs laboratory work. I did offer to check her for anemia and to recheck her urine, but through shared decision making, patient and stepmother declined. I feel her medical screening examination is negative for any emergent process. She was told to avoid the use of Bactrim although I see no signs of anaphylaxis or Loving-Jas syndrome, and she states that her UTI symptoms have resolved. She will follow-up with her primary care provider. Patient and stepmother agreeable to the plan. Return instructions reviewed. Patient is motivated for discharge. Disposition is discharged home in stable condition. History & Record Review Discussion w/independent historian: Patient and Family (Stepmother) Discharge Plan Triage Chief Complaint: Complaint ED Provider: Maxi Roman Dx/Rx/DC Orders Clinical Impression: Encounter for medical screening examination, No active medical problems Instructions: ED Screening Exam Medical Nonurgent Prescriptions: No Action ondansetron 4 mg tablet,disintegrating 4 mg PO TID PRN (Reason: nausea and vomiting) Qty: 21 0RF phenazopyridine [Pyridium] 200 mg tablet 200 mg PO TID PRN (Reason: pain) 3 Days Qty: 9 0RF cephalexin 500 mg capsule 500 mg PO TID 5 Days Qty: 15 0RF Primary Care Provider: Ale Leslie Referrals: Ale Leslie MD [Primary Care Provider, Family Practice] - [facility] [place] appointment Activity Restrictions/Additional Instructions: Avoid use of Bactrim. Return with increased difficulty breathing or swallowing, new or worsening symptoms. Follow-up with your primary care provider. Print Language: [place] Island[place] Disposition Disposition: Home, Self Care
== END 2025-03-10 13:16 | disposition home or self-care (01) ==
LOC: ED 12:58
PROVIDERS: Emergency Provider Emergency Medicine; PCP Family Medicine; Visit Provider Emergency Medicine
DX: Z71.1 Person with feared health complaint in whom no diagnosis is made (principal)
CPT/HCPCS: 99282

== ENCOUNTER → 2025-04-05 | Outpatient (CLI) | payer OTHER, SELFPAY | END | disposition home or self-care (01) | LOC: LABSPEC 10:37 | PROVIDERS: PCP Family Medicine; Referring Provider Physician Assistant; Visit Provider Physician Assistant | DX: R30.0 Dysuria (principal) | CPT/HCPCS: 87086; 87088 ==

== ENCOUNTER 2025-05-09 12:37 | Emergency (ER) | payer OTHER, SELFPAY ==
[2025-05-09 12:38] VITALS: BP 108/81; PULSE 97; RESP 14; TEMP 36.8; O2SAT 98; BMI 21.2
[2025-05-09] MEDS: 0.9% Normal Saline (1000mL) 1,000 ML 999 ML IV (14:16)
[2025-05-09 14:19] LABS: Hematocrit 40.7 % (37-47); Hemoglobin 13.2 g/dL (12.0-15.0); Immature Granulocytes Count 0.070 X10^3/uL (0.0-0.0); Mean Corp Hgb Conc 32.4 g/dL (32-36); Mean Corpuscular Volume 90.0 fL (81-99); Mean Platelet Vol. 9.0 fl (6.2-12.0); NRBC Flagged by Analyzer 0 % (0-5); POSITIVE DIFFERENTIAL YES; POSITIVE MORPHOLOGY YES; Platelet Count 266 K/mm3 (150-450); RBC Distribution Width CV 13.3 % (11.6-14.6); RBC Distribution Width SD 43.8 fl (35.1-43.9); Red Blood Count 4.52 M/mm3 (4.2-5.4); White Blood Count 8.7 K/mm3 (4.4-11.0)
[2025-05-09 14:20] LABS: Differential Indicated SCAN CRITERIA MET
[2025-05-09 14:20] LABS: Color, Urine Amber (Yellow); Glucose, Dipstick Normal (Normal); Ketone-Dipstick 50 mg/dl (Negative); Leukocyte Esterase-Dipstick 25 /ul (Negative); Nitrite-Dipstick Negative (Negative); Occult Blood-Urine 250 /ul (Negative); Protein-Dipstick 30 mg/dl (Negative); Specific Gravity, Urine 1.020 (1.002-1.030)
--- NOTE | 2025-05-09 14:21 | EDS_ITS ---
HPI History of Present Illness Chief Complaint: General Illness Informant: patient and parent Narrative Narrative: Patient is 19-year-old female presents with recurrence/ongoing UTI symptoms as well as abdominal pain which is diffuse and nausea and vomiting. She states she is on multiple courses of antibiotics most recently was put on Keflex which has been improving her UTI symptoms. She has mainly been following at urgent care. She is continue to have diffuse abdominal pain with nausea and vomiting (currently relieved with Zofran which was prescribed at urgent care 3 days ago at [place] urgent care due to ongoing symptoms mother brought her in. Mother also voices concern for labile temperatures which ago from hot and cold. No symptoms no objective fevers reported.. Currently is not having any urinary symptoms. States she is only in water today and has not had much appetite. States she did eat macaroni cheese and a hot dog yesterday. Urgent care urine cultures reviewed from 02/22/2025 and 04/05/2025 which showed mixed gram-positive and gram-negative organisms. On 02/23/25 was positive for lactococcus garvieae 11,000 25,000 CFU's per mL which is consistent with contamination. Mother also voices concern and she had reactions to both sulfa and Macrobid. [facility] Medical History Acute UTI No active medical problems Home Medications ?Medication ?Instructions ?Recorded ?Last Taken ?Type cephalexin 500 mg capsule 500 mg PO TID #21 caps 04/05 Unknown Rx Allergy/AdvReac Type Severity Reaction Status Date / Time Sulfa (Sulfonamide AdvReac Mild Upset Verified 05/09/25 12:42 Antibiotics) (sulfa drugs) Stomach nitrofurantoin (From AdvReac Upset Verified 05/09/25 12:42 Macrobid) Stomach Surgical History No pertinent past surgical history Social History Smoking Status: Never smoker alcohol intake: never substance use type: does not use ROS ROS ED Constitutional Constitutional ED: Reports chills, fever(s) and subjective ENT ENT ED: Reports sore throat Cardiovascular Cardiovascular: Denies chest pain Respiratory/Chest Respiratory/Chest: Denies cough or dyspnea Gastrointestinal Gastrointestinal: Reports abdominal pain and nausea; Denies diarrhea, melena or vomiting Genitourinary Genitourinary ED: Reports dysuria and urinary frequency Musculoskeletal Musculoskeletal: Reports arthralgias, back pain and myalgias Integumentary Denies rash Neurologic Neurologic: Reports weakness Psychiatric Psychiatric: Denies anxiety Hematologic/Lymphatic Hematologic/Lymphatic: Denies easy bleeding or easy bruising EXAM Physical Exam Const Vital Signs: 05/09/25 12:38 05/09/25 13:19 Temperature 98.2 F Temperature Source Oral Pulse Rate 97 Respiratory Rate 14 Respiratory Effort Normal Respiratory Pattern Normal Blood Pressure 108/81 H Blood Pressure Mean 90 Pulse Ox 98 Oxygen Delivery Method Room Air Positive well nourished and well developed General Appearance ED: well developed and NAD HEENT Reports moist mucous membranes Eyes PERRL General Eye ED: Negative for pale conjunctiva Neck supple Chest Wall inspection of chest normal and palpation of chest normal Resp normal respiratory effort and clear to auscultation bilaterally Cardio regular rate and regular rhythm GI non-distended and no masses Auscultation: hyperactive bowel sounds Palpation: soft and tender LLQ, RLQ and RUQ; Negative for guarding, mass or rebound tenderness present Back/Spine General Back: CVA tenderness left Extremity normal to inspection General Extremety ED: Negative for edema General Extremity: Negative for edema Neuro oriented x3 Sensorium / Orientation: alert Motor Exam: Negative for general weakness Psych mental status grossly normal Skin no rashes or lesions noted and no wounds MDM MDM MDM Narrative Medical decision making narrative: Patient evaluated for at least a month of generalized malaise, intermittent abdominal pain, nausea and subjective fevers and chills. Has been on multiple courses antibiotics for possible UTIs and currently is on Keflex. Currently having ongoing urinary symptoms and she is on Keflex but continues to have abdominal pain and malaise and just still feels sick. Mother is also concerned because she had a urinalysis on Thursday at urgent care which reportedly showed ketones and bilirubin. Workup looking for signs of systemic infection, mononucleosis, transaminitis given reported elevated bilirubin as well as worsening urine infection is obtained. Workup shows no leukocytosis or anemia. Platelets are normal. She does have 3+ reactive lymphocytes with elevated absolute lymphocyte counts. Monospot is added on because she also has transaminitis. Her bilirubin is normal. CMP otherwise normal. Coags added on which are normal is no signs of liver dysfunction. Urinalysis does show greater than 100 red blood cells but no bacteria seen, no crystals seen and she also has elevated bilirubin. She is not acting like a kidney stone I do not think she requires renal imaging at this time. Monospot is positive. Patient is given IV fluids and Zofran in the emergency room. Repeat evaluation she states she is feeling mildly improved. She is hemodynamically stable in the emergency room. Will be treated symptomatically for mono. Counseled on symptomatic treatment including pushing fluids and using ibuprofen. Counseled to not take acetaminophen given that she does have a transaminitis. She verbalizes understanding of this. Will follow-up in 2 weeks as scheduled with PCP. Instructed that if her urine culture and results negative over the next day or 2 she can stop her antibiotics. She does not play contact sports but given precautions associated with any blunt trauma to site of mononucleosis. States she has Zofran at home and does not need prescriptions for this. Return precautions. Discharged home in stable condition. Lab Data Attestation: I reviewed the patient's lab results. Labs: Laboratory Results - last 24 hr 05/09/25 05/09/25 05/09/25 14:09 14:13 15:10 WBC 8.7 RBC 4.52 Hgb 13.2 Hct 40.7 MCV 90.0 MCH 29.2 MCHC 32.4 RDW Std Deviation 43.8 RDW Coeff of Dorian 13.3 Plt Count 266 MPV 9.0 Immature Gran % (Auto) 0.800 Neut % (Auto) 21.1 L Lymph % (Auto) 69.3 H [place] % (Auto) 6.2 Eos % (Auto) 0.5 Baso % (Auto) 2.1 H Absolute Neuts (auto) 1.8 L Absolute Lymphs (auto) 6.04 H Nucleated RBC % 0 Reactive Lymphocytes 3+ PT 13.7 INR 1.0 APTT 30.8 Sodium 140 Potassium 4.4 Chloride 102 Carbon Dioxide 26.9 Anion Gap 11 BUN 11 Creatinine 0.62 L Estim Creat Clear Calc 120.73 Est GFR (MDRD) Non-Af 131 BUN/Creatinine Ratio 18.2 Glucose 81 Calcium 8.9 Total Bilirubin 0.72 AST 299 H ALT 434 H Alkaline Phosphatase 300 H Total Protein 7.7 Albumin 4.1 Globulin 3.7 Albumin/Globulin Ratio 1.1 Urine Color Trisha Urine Clarity Cloudy Urine pH 6.0 Ur Specific [place] 1.020 Urine Protein 30 H Urine Glucose (UA) Normal Urine Ketones 50 H Urine Occult Blood 250 H Urine Nitrite Negative Urine Bilirubin 3 H Urine Urobilinogen 8 H Ur Leukocyte Esterase 25 H Urine RBC > 100 SEEN Urine WBC 0-5 SEEN Ur Squamous Epith Cells 0-5 SEEN Urine Bacteria 0 SEEN Urine Mucus 1+ Monoscreen POSITIVE H Discharge Plan Triage Chief Complaint: General Illness ED Provider: Federica Manzo Dx/Rx/DC Orders Clinical Impression: Mononucleosis, Transaminitis, Microscopic hematuria Instructions: ED Hematuria, ED Mononucleosis Prescriptions: No Action cephalexin 500 mg capsule 500 mg PO TID Qty: 21 0RF Primary Care Provider: Christina Christy Referrals: Christina Christy DO [Primary Care Provider, Internal Medicine] Activity Restrictions/Additional Instructions: Avoid any contact sports or blunt trauma as you have mononucleosis this can cause swelling of your liver and spleen. Please follow-up with family medicine as we discussed for repeat evaluation of your urine ensure that the blood your urine has cleared up. I would recommend taking ibuprofen instead of Tylenol (acetaminophen) as needed for pain or fevers. Make sure drinking plenty of fluids. If you develop sudden onset of severe abdominal pain or worsening symptoms please do not hesitate to return to the emergency room. Print Language: [place] Disposition Disposition: Home, Self Care
[2025-05-09 14:22] LABS: Urine Bilirubin Dipstick 3 mg/dL (Negative)
[2025-05-09 14:27] LABS: Mucous, Urine 1+ /hpf (<or=2+); Red Blood Cells-Urine > 100 SEEN /hpf (0-5); Squamous Epithelial Cells - UA 0-5 SEEN /hpf (5-10)
[2025-05-09 14:39] LABS: Reactive Lymphocyte 3+
[2025-05-09 14:50] LABS: AST(SGOT) 299 U/L (<=31); Alanine Aminotransfer ALT/SGPT 434 U/L (<=34); Albumin, Serum 4.1 g/dL (3.5-5.0); Alkaline Phosphatase 300 U/L (35-104); Anion Gap 11 (5-15); BUN 11 mg/dL (4-19); BUN/Creat Ratio 18.2 RATIO (10-20); Calcium,Total 8.9 mg/dL (7.6-11.0); Carbon Dioxide 26.9 mmol/L (21.0-32.0); Chloride 102 mmol/L (98-108); Estimated Creatinine Clearance 120.73 ml/min (50-250); Globulin 3.7 g/dL (2.2-4.2); Glucose 81 mg/dL (70-99); Potassium 4.4 mmol/L (3.3-5.1)
[2025-05-09 15:35] LABS: Partial Thromboplast Time 30.8 Seconds (24.1-36.2); Prothrombin Time (Protime)PT. 13.7 SECONDS (11.7-14.9)
[2025-05-09 15:40] LABS: Internal QC Validated? YES +Cl - CLEAR BKGD; Record Kit Lot#, Mono 16251077
[2025-05-09 16:13] VITALS: BP 145/78; PULSE 64; RESP 18; TEMP 36.6; O2SAT 99
== END 2025-05-09 16:16 | disposition home or self-care (01) ==
PROVIDERS: Emergency Provider Emergency Medicine; PCP Internal Medicine; Visit Provider Emergency Medicine
DX: R10.84 Generalized abdominal pain (principal); B27.90 Infectious mononucleosis, unspecified without complication; R31.29 Other microscopic hematuria; R74.01 Elevation of levels of liver transaminase levels
CPT/HCPCS: 80053; 81001; 85025; 85610; 85730; 86308; 96361; 96374; 99283; A4216; J2405